=== PATIENT | male | born 1990 | race Caucasian/White ===

== ENCOUNTER 2023-12-14 11:54 | Outpatient (CLI) | payer OTHER | END 2023-12-14 11:55 | disposition home or self-care (01) | LOC: CSHULT 11:54 | PROVIDERS: ATTEND Chiropractor | DX: J45.909 Unspecified asthma, uncomplicated (principal); I25.9 Chronic ischemic heart disease, unspecified; M54.6 Pain in thoracic spine; M54.50 Low back pain, unspecified; S39.012A Strain of muscle, fascia and tendon of lower back, initial encounter | CPT/HCPCS: 71046; 72070; 72100; 93306; 94060; 94664; 94760 ==